=== PATIENT | female | born 1975 | race American Indian/Alaskan Native ===

== ENCOUNTER 2016-10-09 06:09 | Day surgery (SDC) | payer MEDICARE ==
[2016-10-09] MEDS ORDERED: NACL 0.9% 1000 ML 1,000 ML IV SCH (07:00)
--- NOTE | 2016-10-09 07:36 | Anesthesia Consultation ---
Anesthesia Consult and Med Hx Date of service: 10/09/16 - Airway Anesthetic Teeth Evaluation: Good ROM Head & Neck: Adequate Mental/Hyoid Distance: Adequate Mallampati Class: Class II Intubation Access Assessment: Probably Good - Pulmonary Exam CTA: Yes - Cardiac Exam Cardiac Exam: RRR - Pre-Operative Health Status ASA Pre-Surgery Classification: ASA3 Proposed Anesthetic Plan: MAC - Pulmonary Hx Smoking: No - Gastrointestinal Hx Gastroesophageal Reflux Disease: Yes - Other Systems Hx Obesity: Yes - Additional Comments Anesthesia Medical History Comments: HIV+
--- NOTE | 2016-10-09 07:36 | Anesthesia Day of Surgery ---
Anesthesia Day of Surgery - Day of Surgery Patient Examined: Yes Patient H&P Reviewed: Yes Patient is NPO: Yes
[2016-10-09] MEDS ORDERED: DIPRIVAN 10 MG/ML IV ONE ×2 (07:43)
[2016-10-09 08:21] VITALS: BP 135/86
--- NOTE | 2016-10-09 08:57 | Post Anesthesia Evaluation ---
- Post Anesthesia Evaluation Patient Participated: Yes Airway Patent: Yes Stable Respiratory Function: Yes Nausea/Vomiting: No Temp > 96.8F: Yes Pain Manageable: Yes Adequeate Hydration: Yes Anesthesia Complications: No
--- NOTE | 2016-10-09 22:17 | Operative Report ---
PREOPERATIVE DIAGNOSES: 1. Dysphagia. 2. Nausea and vomiting. 3. Failure to adequately lose weight following previous bariatric procedure, which appeared to be that of a sleeve gastrectomy. POSTOPERATIVE DIAGNOSES: 1. Esophagitis. 2. Hiatal hernia ASSESSMENT: Because of the hiatal hernia, because of the esophagitis and because of what appears to be reflux, the patient appears to need conversion from this sleeve gastrectomy to a bypass procedure. DESCRIPTION OF PROCEDURE: The patient was placed in the dorsal supine position and following satisfactory induction of MAC anesthesia, the patient was placed in left lateral decubitus position for an induction and placement of the scope into the posterior oropharynx. The scope was placed on the posterior oropharynx and passed down through the upper esophagus, mid esophagus and the lower esophagus without problems. After the lower esophagus was penetrated to the upper stomach was accomplished and the patient appeared to have had a sleeve gastrectomy. The sleeve gastrectomy was noted and we pulled the scope back up into the esophagus where there was noted to be some erythematous changes which indicated the patient had esophagitis. The patient had reports of dysphagia and nausea and vomiting and inability to lose adequate amount of weight. With esophagitis and the patient's sleeve gastrectomy, it was felt that the patient's problem was that of an increased amount of reflux as a result of her sleeve gastrectomy and that the esophagitis was closed with a sleeve gastrectomy as well. The patient also had what appears to be a hiatal hernia and therefore, it was felt that because of the increased amount of pressure inside the patient's sleeve gastrectomy and the hiatal hernia that it would be best that she be converted to a gastric bypass. The remainder of the exam was unremarkable, therefore the procedure was terminated by desufflating the stomach and the scope was removed. The patient tolerated the procedure well and was sent to recovery room in satisfactory condition. JOB# [id number] ROSANA/DIMPLE
== END 2016-10-09 06:10 | disposition home or self-care (01) ==
LOC: GIO 06:09
PROVIDERS: ATTEND Specialist
DX: K21.0 Gastro-esophageal reflux disease with esophagitis (principal); K44.9 Diaphragmatic hernia without obstruction or gangrene; I10 Essential (primary) hypertension; E66.9 Obesity, unspecified; Z68.44 Body mass index [BMI] 60.0-69.9, adult; Z79.899 Other long term (current) drug therapy; Z90.3 Acquired absence of stomach [part of]
CPT/HCPCS: 43235; J2704; J7030